=== PATIENT | female | born 1960 | race Caucasian/White ===

== ENCOUNTER 2017-09-12 02:11 | Inpatient (IN) | payer BC ==
--- NOTE | 2017-09-09 04:03 | HISTORY AND PHYSICAL ---
DATE OF ADMISSION: September 12, 2017 IDENTIFICATION/CHIEF COMPLAINT Nickie is a 57-year-old woman with the chief complaint of left hip pain. HISTORY OF PRESENT ILLNESS The patient has a longstanding history of left hip arthritis, progressively painful and debilitating, refractory to conservative care. Surgery is indicated to relieve symptoms after failure of nonoperative measures. PAST MEDICAL HISTORY 1. History of pneumothorax. 2. Pulmonary blebs. 3. Hypertension, controlled on medication. 4. Sleep apnea. 5. Acid reflux disease. PAST SURGICAL HISTORY 1. Notable for contralateral hip replacement. 2. Knee surgery. ALLERGIES PENICILLIN, causes a rash. CURRENT MEDICATIONS 1. Multiple supplements. 2. Crestor 20 mg per day. 3. Citalopram 20 mg a day. 4. Lisinopril 20 mg a day. 5. Hydrochlorothiazide 25 mg a day. FAMILY HISTORY Notable with a father with [employer] and diabetes. Mother with cancer, diabetes, COPD. SOCIAL HISTORY Negative for tobacco use. She quit 20 years ago. She drinks alcohol socially, denies abuse. REVIEW OF SYSTEMS Negative. PHYSICAL EXAMINATION GENERAL: This is a well-developed, well-nourished female who appears stated age. She is normocephalic, atraumatic. NECK: Supple. LUNGS: Clear. HEART: Regular. ABDOMEN: Soft. ORTHOPEDIC EXAM: The left hip is irritable at end range of motion. She is stiff. Hip girdle strength is grossly intact. Calves nontender. Neurovascular function is intact. IMAGING Radiographs demonstrate end-stage hip arthritis. ASSESSMENT Left hip end-stage DJD, progressively painful and debilitating, and refractory to conservative care. PLAN Per patient request, we will proceed with total hip arthroplasty. The nature of the procedure, risks, benefits and the anticipated rehab course were reviewed. Risks include, but are not limited to , major medical or anesthetic complication, infection or neurovascular injury, blood transfusion, leg length discrepancy, instability, need for additional surgery, implant loosening, irrigation or failure or other unforeseen. She understands and wishes to proceed. A signed permit was placed on the chart. No guarantees given or applied. [facility]
[2017-09-11 15:58] LABS: INR 0.94
[~2017-09-12] VITALS: Ht 154.9 cm; Wt 90.7 kg
[2017-09-12] VITALS (16 sets, daily range): BP systolic 99–136; BP diastolic 58–86
[~2017-09-12 02:11] MED LIST: ACET650T40 PO; ALPR-1 PO; ASPI81TA94 PO; BENZ1LOZ MM; BISA-236 RC; CHOL10005 PO; CITA-156 PO; CITA-157 PO; CYAN250013 PO; ERTA1VIA2 IV; FOCUS FACTOR PO; FOSI20TA57 PO; HYDR-2966 PO; HYDR-3503 PO; MILK140C3 PO; MOM PO; OMEG100032 PO; OMEP-125 PO; RESV50CA PO; RIFA300C50 PO; RIV10 PO; ROSU20TA23 PO; TRAM-420 PO; TURM1POW3 MC; TURM538C PO; VITA1CAP46 PO; [UNRECOGNIZED DRUG - CODE] IV; [UNRECOGNIZED DRUG - CODE] PO
[2017-09-12] MEDS ORDERED: PROPOFOL EMUL(*) 10MG/ML 20 ML 40 ML ONE ×2 (09:51→12:09)
[2017-09-12] MEDS ORDERED: LIDOCAINE MPF 1% 5 ML VIAL ONE (09:53)
[2017-09-12] MEDS ORDERED: VANCOMYCIN 1 GM ADDVIAL 1 GM in NS(*) 0.9% 250 ML ADDVAN BAG 250 ML IVPB ONE (10:20)
[2017-09-12] MEDS ORDERED: VANCOMYCIN 1 GM ADDVIAL ONE (10:29)
[2017-09-12] MEDS ORDERED: TRANEXAMIC AC 1000 MG/10ML SDV 1,000 MG in DEXTROSE 5% 50 ML BAG 50 ML IV ONE (10:45)
[2017-09-12] MEDS ORDERED: CLINDAMYCIN(*) 900 MG/NS 50 ML 50 ML IVPB ONE (10:45)
[2017-09-12] MEDS ORDERED: MIDAZOLAM 2 MG/2 ML VIAL IVP PRN (10:45)
[2017-09-12] MEDS ORDERED: NORMOSOL R SOLN(*) 1000 ML BAG 1,000 ML IV PRN ×2 (10:45→13:50)
[2017-09-12] MEDS ORDERED: LIDOCAINE/SOD BICARB 8.4% SYR ID ONE (10:45)
[2017-09-12] MEDS ORDERED: FAMOTIDINE 20 MG TAB PO ONE (10:45)
[2017-09-12] MEDS ORDERED: cloNIDine EPIDUR INJ 100MCG/ML 40 MCG, ROPIVACAINE 0.5% 20 ML VIAL 25 ML, EPINEPHrine H... INJ ONE (10:45)
[2017-09-12] MEDS ORDERED: VANCOMYCIN 1 GM VIAL ONE (11:50)
[2017-09-12] MEDS ORDERED: PHENYLEPHRINE/NS/PF 0.4MG/10ML ONE (12:09)
[2017-09-12] MEDS ORDERED: fentaNYL CITR 100 MCG/2 ML AMP ONE (13:23)
[2017-09-12] MEDS ORDERED: BISACODYL 10 MG SUPP PR PRN (13:50)
[2017-09-12] MEDS ORDERED: diphenhydrAMINE 25 MG CAP PO PRN (13:50)
[2017-09-12] MEDS ORDERED: diphenhydrAMINE 50 MG/ML VIAL IVP PRN (13:50)
[2017-09-12] MEDS ORDERED: FLUSH 10 ML SYR IVP PRN (13:50)
[2017-09-12] MEDS ORDERED: ZOLPIDEM TARTRATE 5 MG TAB PO PRN (13:50)
[2017-09-12] MEDS ORDERED: ACETAMINOPHEN 325 MG TAB PO PRN (13:50)
[2017-09-12] MEDS ORDERED: MAGNESIUM HYDROXIDE* 30ML UDCP PO PRN (13:50)
[2017-09-12] MEDS ORDERED: BENZOCAINE/MENTHOL 1 EACH LOZG PO PRN (13:50)
[2017-09-12] MEDS ORDERED: PROMETHAZINE 25 MG/ML 1 ML AMP IVP PRN (13:50)
--- NOTE | 2017-09-12 15:16 | RADIOLOGY IMAGING REPORT ---
FACILITY: [facility] - [place] PATIENT NAME: Nickie Iniguez : 1960 MR: [id number] V: [id number] EXAM DATE: ORDERING PHYSICIAN: KARTIK BREAUX TECHNOLOGIST: Location: [facility] - [place] Patient: Nickie Iniguez : 1960 Visit/Account:[id number] Date of Sevice: 09/12/2017 Exam type: PELVIS History: POST OP PLACEMENT Comparison: September 17, 2013. Findings: There has been placement of a left total hip arthroplasty that appears in good anatomic alignment on this AP view. Soft tissue gas and skin ernie project adjacent to this postoperative hip. Right hi p arthroplasty appears similar to the prior examination IMPRESSION: 1. As above Report Dictated By: Linette Wade MD at 09/12/2017 3:10 PM Report E-Signed By: Linette Wade MD at 09/12/2017 3:11 PM WSN:[email or web address]
[2017-09-12] MEDS: APAP/HYDROCODONE 325/7.5 TAB PO PRN ×3 (15:32→23:34)
[2017-09-12] MEDS: CELECOXIB 200 MG CAP PO SCH (15:32)
[2017-09-12] MEDS: DIAZEPAM 5 MG TAB PO PRN (18:01)
[2017-09-12] MEDS: CLINDAMYCIN(*) 900 MG/NS 50 ML 50 ML IVPB SCH (19:31)
[2017-09-12] MEDS: MORPHINE 2 MG/ML SYR IVP PRN (21:21)
--- NOTE | 2017-09-12 22:58 | Hospitalist Progress Note ---
Subjective Progress Notes Subjective No cp/sob. 100cc of EBL. 1650cc of crystalloid, and TXA given intra-op. Physical Exam Vital Signs Date Time Temp Pulse Resp B/P (MAP) Pulse Ox O2 Delivery O2 Flow Rate FiO2 09/12/17 19:35 95 Room Air 09/12/17 19:30 71 20 108/58 (75) 09/12/17 18:26 98.8 09/12/17 14:44 2.0 Intake and Output 09/13/17 07:00 Intake Total 2420 ml Output Total 50 ml Balance 2370 ml Intake Oral 420 ml IV Total 2000 ml Output Estimated Blood Loss 50 ml # Voids 2 # Bowel Movements 1 General Appearance: Alert, Awake, No Acute Distress Cardiovascular: Regular Rate and Rhythm Respiratory: Clear to Auscultation Extremities: No Edema Assessment and Plan Problems: (1) Status post hip replacement Status: Acute Assessment & Plan: No CV/pulmonary issues. The patient denies any h/o DVT/PE. The patient to be on ASA 325mg a day for blood clot prevention for 30 days after surgery. (2) Vtcs-Zzrc-Ubxw syndrome Status: Chronic Assessment & Plan: She had a spontaneous pneumothorax in June. No problems since then. (3) HTN (hypertension) Status: Chronic Assessment & Plan: Continue fosinopril and HCTZ with parameters. (4) CARLY (obstructive sleep apnea) Status: Chronic Assessment & Plan: Continue chronic CPAP. (5) Hyperlipemia Status: Chronic Assessment & Plan: She takes Crestor 2-3x/wk. She wants to hold it for now. Exam Sepsis Risk: No Definite Risk Problem Qualifiers (1) Status post hip replacement: Laterality: left Qualified Codes: Z96.642 - Presence of left artificial hip joint CARMEN LAKHANI MD Sep 12, 2017 22:57
[2017-09-13] MEDS: MORPHINE 2 MG/ML SYR IVP PRN ×2 (00:13→20:12)
[2017-09-13] MEDS: DIAZEPAM 5 MG TAB PO PRN ×3 (03:56→17:44)
[2017-09-13] MEDS: CLINDAMYCIN(*) 900 MG/NS 50 ML 50 ML IVPB SCH ×2 (03:56→11:41)
[2017-09-13] MEDS: APAP/HYDROCODONE 325/7.5 TAB PO PRN ×4 (03:56→23:27)
[2017-09-13 03:58] VITALS: BP 113/72
--- NOTE | 2017-09-13 04:10 | LEVENE THA ---
EVENT DATE: September 12, 2017 SURGEON: Pola Stephens MD ANESTHESIOLOGIST: Luis Villela MD ANESTHESIA: General sedation with spinal FAMILY HEALTH NURSE PRACTITIONER: TENISHA Moore PREOPERATIVE DIAGNOSIS Left hip degenerative joint disease. POSTOPERATIVE DIAGNOSIS Left hip degenerative joint disease. PROCEDURE PERFORMED Left total hip arthroplasty. ESTIMATED BLOOD LOSS 300 mL. DRAINS None. SPECIMENS None. COMPLICATIONS No apparent. IMPLANTS Townsend Secur-Fit Max 127, size 10 stem, a Trident PSL العراقي cluster acetabular shell, 48, a Trident X3 0 degree poly liner, 36 mm head accommodating and a Biolox Delta ceramic C taper femoral head, 36 mm -5 neck length. INDICATIONS The patient has end-stage hip arthritis that is painful and debilitating and refractory to conservative care. S he has done well after a prior contralateral hip arthroplasty. Surgery is indicated to relieve pain and improve function after failure of non-operative measures. DESCRIPTION OF PROCEDURE The patient was taken to the operating room and placed supine on the operating table. Spinal block was administered by the anesthesiologist. Due to issue with pulmonary blebs, propofol and sedation were administered by the anesthesiologist and monitored rather than general anesthetic. The patient was positioned in the right lateral decubitus position on a well-padded peg board. All bony prominences and superficial nerves were well padded. Left hip girdle and lower extremity were prepped and draped in the usual sterile fashion for total hip arthroplasty. A standard posterolateral approach was made. Dissection was carried through skin and deep subcu layer down to the deep fascia. This was incised over the tip of the trochanter, extended distally in line with the femur, proximally in line with the sukh fibers. Sukh fibers were split bluntly. Trochanteric bursa was excised. The interval between the abductor and external rotator was identified. Abductor mechanism was protected with a blunt Hohmann. An L capsulotomy was made, starting just above the superior aspect of the pyriformis, and the capsule and external rotators were taken off as a brick layer the back of the femur. This was tagged with #2 Vicryl for later anatomic reattachment. Femoral head was dislocated. End-stage arthritic change is noted. A 1.5 cm neck cut was made, consistent with the preoperative templating. The femoral head was extracted. Femur was translocated anteriorly, and periacetabular retractors were placed with the tips down on bone to avoid injury to critical neurovascular structures. Labrum and pulvinar were excised. A 44 mm reamer was used to medialize to the true medial wall of the acetabulum. This was expanded up to 48, where good rim contact was obtained. Trial 48 has good rder-kj-prky fit. The throat of the acetabulum was opened with a 49. Surfaces were copiously lavaged. The actual shell was impacted, and approximately 45 degrees of lateral opening and 15-20 degrees of anteversion using the transverse acetabular ligament, internal bony landmarks and extracorporeal guide to guide socket placement. Rock solid fixation was achieved. No adjuvant fixation was felt to be needed. Liner was lavaged and dried, and the shell was filled with the acetabular liner. This locked in nicely. Attention turned to femoral preparation. Superior neck was resected with a cookie-cutter. A Gerry awl finds the canal. Tapered reaming was performed up to size 10, where good endosteal contact was obtained. Broaching starts at 8 and works up to 10, following the chemehuevi version of the calcar at about 12-15 degrees. The 10 broach is a bit proud but satisfactory within one row of teeth, and has nice fit and fill. Trial reductions were performed off this. Good sikh of limb length and stability is achievable. Broach was removed. Surfaces were copiously lavaged. The actual stem was impacted into position, seated at same height. The -5 was optimal for sikh of soft tissue tension and stability and limb length. The Parker taper was lavaged and dried, and the actual head was impacted onto the Parker taper. Joint was reduced. The wound was copiously lavaged, meticulous hemostasis was ensured. The external rotators and capsule were repaired through drill holes in the back of the trochanter. Deep fascia was closed distally with #2 Ethibond, proximally with #2 Vicryl. Subcu was lavaged, hemostasis ensured. Dermis was closed with 3-0 Vicryl and skin with surgical ernie. Xeroform was applied followed by a sterile dressing, compression wrap. The patient was awakened from anesthesia and taken to recovery room in stable condition, having tolerated the procedure well. The plan is for a standard HUSSAIN rehab protocol. [facility]
[2017-09-13 07:15] VITALS: BP 103/62
--- NOTE | 2017-09-13 07:44 | Hospitalist Progress Note ---
Subjective Progress Notes Subjective Doing well post op. Pain well controlled. Up to BR without issue. Physical Exam Vital Signs Date Time Temp Pulse Resp B/P (MAP) Pulse Ox O2 Delivery O2 Flow Rate FiO2 09/13/17 07:21 96 Room Air 09/13/17 07:15 98.7 62 16 103/62 (76) 09/13/17 04:45 2.0 Intake and Output 09/14/17 07:00 Intake Total 740 ml Balance 740 ml Intake Oral 740 ml General Appearance: Alert, Awake, No Acute Distress Cardiovascular: Regular Rate and Rhythm Respiratory: Clear to Auscultation Integumentary: Other (No evidence for TP.) Psych: Alert & Oriented X3, Appropriate Mood & Affect Assessment and Plan Problems: (1) Status post hip replacement Status: Acute Assessment & Plan: No CV/pulmonary issues. The patient denies any h/o DVT/PE. The patient to be on ASA 325mg a day for blood clot prevention for 30 days after surgery. (2) Ktpw-Anzd-Kpwd syndrome Status: Chronic Assessment & Plan: She had a spontaneous pneumothorax in June. No problems since then. (3) HTN (hypertension) Status: Chronic Assessment & Plan: Continue fosinopril and HCTZ with parameters. BP stable on the low end of the scale. (4) CARLY (obstructive sleep apnea) Status: Chronic Assessment & Plan: Continue chronic CPAP. (5) Hyperlipemia Status: Chronic Assessment & Plan: She takes Crestor 2-3x/wk. She wants to hold it for now. Time Spent on Plan of Care: < 30 min Exam Sepsis Risk: No Definite Risk Problem Qualifiers (1) Status post hip replacement: Laterality: left Qualified Codes: Z96.642 - Presence of left artificial hip joint SHE LONDONO MD FACP Sep 13, 2017 07:44
[2017-09-13] MEDS: HYDROCHLOROTHIAZIDE 25 MG TAB PO SCH (08:46)
[2017-09-13] MEDS: PANTOPRAZOLE SOD 40 MG TABEC PO SCH (08:46)
[2017-09-13] MEDS: CELECOXIB 200 MG CAP PO SCH ×2 (08:46→16:34)
[2017-09-13] MEDS: ASPIRIN 325 MG TAB PO SCH (08:46)
[2017-09-13] MEDS: FOSINOPRIL SODIUM 10 MG TAB PO SCH (08:46)
[2017-09-13] MEDS: CITALOPRAM HYDROBROM 20 MG TAB PO SCH (08:46)
[2017-09-13 11:15] VITALS: BP 105/64
[2017-09-13 15:17] VITALS: BP 113/66
[2017-09-13 16:52] VITALS: Ht 154.9 cm; Wt 90.7 kg
[2017-09-13 19:21] VITALS: BP 116/75
[2017-09-13 23:25] VITALS: BP 113/68
[2017-09-14 06:20] VITALS: BP 125/73
[2017-09-14] MEDS: APAP/HYDROCODONE 325/7.5 TAB PO PRN ×2 (06:21→10:05)
--- NOTE | 2017-09-14 07:24 | Hospitalist Progress Note ---
Subjective Progress Notes Subjective Doing very well with rehab. She feels comfortable going home this morning and follow-up with Dr. Stephens. Physical Exam Vital Signs Date Time Temp Pulse Resp B/P (MAP) Pulse Ox O2 Delivery O2 Flow Rate FiO2 09/14/17 07:04 92 Room Air 09/14/17 06:20 98.7 73 16 125/73 (90) 09/13/17 04:45 2.0 General Appearance: Alert, Awake, No Acute Distress, Afebrile Cardiovascular: Regular Rate and Rhythm Respiratory: Clear to Auscultation Integumentary: Other (No evidence for VTE.) Psych: Alert & Oriented X3, Appropriate Mood & Affect Assessment and Plan Problems: (1) Status post hip replacement Status: Acute Assessment & Plan: The patient to be on ASA 325mg a day for blood clot prevention for 30 days after surgery. Home today with follow-up on 09/[address] Stephens. (2) Rkvu-Idrc-Csvm syndrome Status: Chronic Assessment & Plan: She had a spontaneous pneumothorax in June. No problems since then. (3) HTN (hypertension) Status: Chronic Assessment & Plan: Continue fosinopril and HCTZ with parameters. BP stable on the low end of the scale. (4) CARLY (obstructive sleep apnea) Status: Chronic Assessment & Plan: Continue chronic CPAP. (5) Hyperlipemia Status: Chronic Assessment & Plan: She takes Crestor 2-3x/wk. She wants to hold it for now. Time Spent on Plan of Care: < 30 min Exam Sepsis Risk: No Definite Risk Problem Qualifiers (1) Status post hip replacement: Laterality: left Qualified Codes: Z96.642 - Presence of left artificial hip joint SHE LONDONO MD FACP Sep 14, 2017 07:24
[2017-09-14] MEDS ORDERED: ASPI-757 PO (07:28)
[2017-09-14] MEDS: ASPIRIN 325 MG TAB PO SCH (08:18)
[2017-09-14] MEDS: CITALOPRAM HYDROBROM 20 MG TAB PO SCH (08:19)
[2017-09-14] MEDS: HYDROCHLOROTHIAZIDE 25 MG TAB PO SCH (08:19)
[2017-09-14] MEDS: FOSINOPRIL SODIUM 10 MG TAB PO SCH (08:19)
[2017-09-14] MEDS: PANTOPRAZOLE SOD 40 MG TABEC PO SCH (08:19)
[2017-09-14] MEDS: CELECOXIB 200 MG CAP PO SCH (08:19)
[2017-09-14] MEDS ORDERED: HYDR-4308 PO (08:39)
[2017-09-14] MEDS ORDERED: CELE-1 PO (08:39)
[2017-09-14] MEDS: DIAZEPAM 5 MG TAB PO PRN (10:05)
== END 2017-09-14 10:10 | disposition home or self-care (01) | DRG 470 ==
LOC: OR 02:11 → MED 14:40
PROVIDERS: ADMIT Orthopaedic Surgery; ATTEND Orthopaedic Surgery
PROC: 5A09357 Assistance with Respiratory Ventilation, Less than 24 Consecutive Hours, Continuous Positive Airway Pressure (ICD-10-PCS; 2017-09-12)
PROC: 0SRB04Z Replacement of Left Hip Joint with Ceramic on Polyethylene Synthetic Substitute, Open Approach (ICD-10-PCS; principal; 2017-09-12 11:01)
DX: M16.12 Unilateral primary osteoarthritis, left hip (principal); Q87.89 Other specified congenital malformation syndromes, not elsewhere classified; I10 Essential (primary) hypertension; G47.30 Sleep apnea, unspecified; K21.9 Gastro-esophageal reflux disease without esophagitis; E78.5 Hyperlipidemia, unspecified; E66.9 Obesity, unspecified; G47.33 Obstructive sleep apnea (adult) (pediatric); Z96.641 Presence of right artificial hip joint; Z87.891 Personal history of nicotine dependence; Z68.37 Body mass index [BMI] 37.0-37.9, adult; Z90.49 Acquired absence of other specified parts of digestive tract; Z90.710 Acquired absence of both cervix and uterus; Z99.81 Dependence on supplemental oxygen
CPT/HCPCS: 36415; 72170; 85610; 86850; 86900; 86901; 97161; 97165; C1776; J0171; J0735; J1885; J2001; J2250; J2270; J2370; J2704; J2795; J3010; J3370; J3490; J7050; J7060

== ENCOUNTER 2017-09-29 11:53 | Inpatient (IN) | payer BC ==
[2017-09-29] VITALS (8 sets, daily range): BP systolic 100–144; BP diastolic 61–88
[~2017-09-29] VITALS: Ht 154.9 cm; Wt 92.5 kg
[~2017-09-29 11:53] MED LIST changes: +ASPI-757 PO; +CELE-1 PO; +HYDR-4308 PO
[2017-09-29] MEDS: LR(*) 1000 ML BAG 1,000 ML IV PRN ×2 (14:47→15:21)
[2017-09-29] MEDS: MORPHINE 2 MG/ML SYR IVP PRN ×2 (14:47→16:10)
[2017-09-29] MEDS ORDERED: CYCL10TA29 PO (14:55)
[2017-09-29] MEDS ORDERED: NORMOSOL R SOLN(*) 1000 ML BAG 1,000 ML IV ONE ×2 (15:00→20:23)
--- NOTE | 2017-09-29 15:05 | Hospitalist Progress Note ---
Subjective Progress Notes Subjective 57yo female known to our service from her recent hospitalization for her left hip replacement earlier this month. She states she was doing very well since returning home, but tripped on an uneven garage floor and fell. She apparently sustained fracture of her surgical hip and repair is planned. She states she has done well since returning home. She denies any fevers/chill/, dyspnea, chest pain. She has been eating and drinking well. She has been taking her medications regularly, including her aspirin. Physical Exam Vital Signs Date Time Temp Pulse Resp B/P (MAP) Pulse Ox O2 Delivery O2 Flow Rate FiO2 09/29/17 14:18 87.5 86 12 144/88 (106) 94 Room Air General Appearance: Alert, Awake Cardiovascular: Regular Rate and Rhythm Respiratory: Clear to Auscultation GI: Soft and Non-Tender Extremities: Warm, Perfused Psych: Alert & Oriented X3 Assessment and Plan Problems: (1) HTN (hypertension) Status: Chronic Assessment & Plan: She has been managed with fosinopril and HCTZ. Will hold her medications josé antonio-operatively and monitor her BPs. Will resume her medications as needed. Check labs pre-op. (2) CARLY (obstructive sleep apnea) Status: Chronic Assessment & Plan: Continue CPAP. (3) Hyperlipemia Status: Chronic Assessment & Plan: Will resume her rosuvastatin post-op. (4) Cibj-Wvuu-Yhgf syndrome Status: Chronic Assessment & Plan: She had a PNTX this past fall. She appears to be asymptomatic at this point. (5) Hip fracture Status: Acute Assessment & Plan: As per Dr. Stephens. No apparent contraindications to surgery. ANURAG COOPER MD Sep 29, 2017 15:05
[2017-09-29] MEDS ORDERED: ROSUVASTATIN CALCIUM 10 MG TAB PO SCH (15:10)
[2017-09-29 15:15] LABS: PLATELET COUNT, AUTOMATED 454 K/uL (150-450)
[2017-09-29 15:34] LABS: INR 0.97
[2017-09-29] MEDS ORDERED: fentaNYL CITR 100 MCG/2 ML AMP ONE (16:01)
--- NOTE | 2017-09-29 16:02 | RADIOLOGY IMAGING REPORT ---
FACILITY: [facility] - [place] PATIENT NAME: Nickie Iniguez : 1960 MR: [id number] V: [id number] EXAM DATE: ORDERING PHYSICIAN: KARTIK BREAUX TECHNOLOG[place]: [place] [facility] [place] : 1960 Visit/Account:[id number] Date of Sevice: 09/29/2017 FEMUR LEFT W/O CONTRAST HISTORY: Fall. Recent hip replacement. ADDITIONAL HISTORY: None. TECHNIQUE: CT left femur without intravenous contrast. 2-D coronal and sagittal reformatted images were obtained from the initial data. One of the following dose optimization techniques was utilized i n the performance of this exam: automated exposure control; adjustment of the mA and/or kv according to patient size; or use of iterative reconstruction technique. Specific details can be referenced in the facility's radiology CT exam operational policy. CONTRAST: None. COMPARISON: None. FINDINGS: Left femur: Recent left HUSSAIN. There is a oblique fracture extending through the anterior cortex of th e femur extending to the intramedullary aura. Fracture extends to the medial cortex 5 cm inferior to the lesser trochanter. Left HUSSAIN is still well aligned. No discrete acetabular fracture. Mild to mo derate cystic change within the anterior acetabulum. Pubic rami are intact. Knee: Postoperative changes likely from prior ACL reconstruction with mild to moderate tricompartment al degenerative changes. IMPRESSION: 1. Recent left HUSSAIN with oblique fracture extending through the anterior cortex of the proximal femur extending to the intramedullary aura. Fracture extends to the medial cortex 5 cm inferior to the les ser trochanter Report Dictated By: Matt Duggan MD at 09/29/2017 3:51 PM Report E-Signed By: Matt Duggan MD at 09/29/2017 3:58 PM WSN:[email or web address]
[2017-09-29] MEDS ORDERED: LIDOCAINE MPF 1% 5 ML VIAL ONE (16:08)
[2017-09-29] MEDS ORDERED: ONDANSETRON 4 MG/2 ML VIAL ONE (16:08)
[2017-09-29] MEDS ORDERED: PROPOFOL EMUL(*) 10MG/ML 20 ML 40 ML ONE (16:08)
[2017-09-29] MEDS ORDERED: TRANEXAMIC AC 1000 MG/10ML SDV 1,000 MG in DEXTROSE 5% 50 ML BAG 50 ML IVPB ONE ×3 (16:10→17:30)
[2017-09-29] MEDS ORDERED: cloNIDine EPIDUR INJ 100MCG/ML 40 MCG, ROPIVACAINE 0.5% 20 ML VIAL 25 ML, EPINEPHrine H... INJ ONE (16:25)
[2017-09-29] MEDS ORDERED: VANCOMYCIN 1 GM ADDVIAL 1 GM in NS(*) 0.9% 250 ML ADDVAN BAG 250 ML IVPB ONE (16:45)
[2017-09-29] MEDS ORDERED: KETOROLAC 15 MG/ML VIAL IVP ONE (16:50)
[2017-09-29] MEDS ORDERED: CLINDAMYCIN IVPB ONE (17:15)
[2017-09-29] MEDS ORDERED: FAMOTIDINE(*) 20MG/50ML PREMIX 50 ML IVPB ONE (17:15)
[2017-09-29] MEDS ORDERED: NS 0.9% IVPB ONE (17:15)
--- NOTE | 2017-09-29 17:45 | HISTORY AND PHYSICAL ---
DATE OF ADMISSION: September 29, 2017 IDENTIFICATION/CHIEF COMPLAINT Nickie is 17 days out from left hip replacement. She fell yesterday and has severe left hip pain. HISTORY OF PRESENT ILLNESS Patient had been doing well after hip arthroplasty until she stumbled and fell. She has been unable to bear weight and has debilitating groin pain radiating into the thigh. PAST MEDICAL/SURGICAL, FAMILY HISTORY, SOCIAL HISTORY AND REVIEW OF SYSTEMS Otherwise unchanged. ALLERGIES Unchanged. CURRENT MEDICATIONS Unchanged. PHYSICAL EXAMINATION GENERAL: This is a healthy female. HEENT: She is normocephalic, atraumatic. NECK: Supple. LUNGS: Clear. ABDOMEN: Soft. ORTHOPEDIC EXAM: The wound has healed. No signs of infection. Minimal swelling. Calves nontender. Neurovascular function is intact. She is shortened roughly 3 cm compared to the contralateral leg by gross clinical measurement. She resists any range of motion and is unable to straight leg raise secondary to pain. DIAGNOSTIC DATA Radiographs demonstrate subsidence of the femoral component about 4 cm. There is no definitive fracture line. There is no dislocation. There is notable interval change in the position of the femoral component from the immediate postop film. ASSESSMENT Left femoral component subsidence related to proximal femur fracture. PLAN We are going to obtain a metal suppressed CT to better understand the fracture anatomy. Unfortunately this requires revision surgery and this will most likely consist of revision arthroplasty and/or proximal femoral fracture, ORIF with possible bone grafting. The nature of the procedure, risks, benefits, the anticipated rehabilitative course were reviewed. The risks include, but are not limited to , major medical or anesthetic complications, infection, neurovascular injury, blood transfusion, stiffness, scarring, nonunion, malunion , instability, leg length discrepancy, implant loosening, migration or failure, persistent or recurrent pain or symptoms, need for additional surgery and other unforeseen. She understands. A signed consent was placed in the chart. No guarantees are given or implied. [facility]
[2017-09-29] MEDS ORDERED: NORMOSOL R SOLN(*) 1000 ML BAG 1,000 ML IV PRN (20:35)
[2017-09-29] MEDS ORDERED: BISACODYL 10 MG SUPP PR PRN (20:35)
[2017-09-29] MEDS ORDERED: ACETAMINOPHEN 325 MG TAB PO PRN (20:35)
[2017-09-29] MEDS ORDERED: BENZOCAINE/MENTHOL 1 EACH LOZG PO PRN (20:35)
[2017-09-29] MEDS ORDERED: ZOLPIDEM TARTRATE 5 MG TAB PO PRN (20:35)
[2017-09-29] MEDS ORDERED: FLUSH 10 ML SYR IVP PRN (20:35)
[2017-09-29] MEDS ORDERED: PROMETHAZINE 25 MG/ML 1 ML AMP IVP PRN (20:35)
[2017-09-29] MEDS ORDERED: diphenhydrAMINE 50 MG/ML VIAL IVP PRN (20:35)
--- NOTE | 2017-09-29 21:00 | RADIOLOGY IMAGING REPORT ---
FACILITY: [facility] PATIENT NAME: Nickie Iniguez : 1960 MR: [id number] V: [id number] EXAM DATE: ORDERING PHYSICIAN: EDUAR GUILLEN TECHNOLOGIST: Location: [facility] Patient: Nickie Iniguez : 1960 Visit/Account:[id number] Date of Sevice: 09/29/2017 CHEST SINGLE AP Indication: Chest pain. History of pneumothorax.. Comparison: 09/17/2013. Findings: Cardiomediastinal silhouette and pulmonary vessels within normal limits. There is no focal infiltrate or lobar consolidation. No pneumothorax or pleural effusion. No nodule. Upper abdomen is unremarkable. No acute bony abnormality. IMPRESSION: 1. No acute cardiopulmonary process. Report Dictated By: Roly Brandon at 09/29/2017 8:54 PM Report E-Signed By: Roly Brandon at 09/29/2017 8:56 PM WSN:[id number]
--- NOTE | 2017-09-29 21:01 | RADIOLOGY IMAGING REPORT ---
FACILITY: [facility] - [place] PATIENT NAME: Nickie Iniguez : 1960 MR: [id number] V: [id number] EXAM DATE: ORDERING PHYSICIAN: KARTIK BREAUX TECHNOLOGIST: Location: [facility] [place] Patient: Nickie Iniguez : 1960 Visit/Account:[id number] Date of Sevice: 09/29/2017 PELVIS INDICATION: Hip pain history arthroplasty. COMPARISON: 09/12/2017. FINDINGS: Below image of the pelvis. Bilateral hip arthroplasties are present. There are banding wi res around the proximal left femur which is new from the previous exam. No periprosthetic lucencies. No acute fracture or dislocation. No bony lesions. Soft tissues are unremarkable . No radiopaque fore ign body otherwise. IMPRESSION: No acute abnormality. Report Dictated By: Roly Brandon at 09/29/2017 8:56 PM Report E-Signed By: Roly Brandon at 09/29/2017 8:58 PM WSN:[id number]
[2017-09-29] MEDS: DIAZEPAM 5 MG TAB PO PRN (21:35)
[2017-09-29] MEDS: APAP/HYDROCODONE 325/7.5 TAB PO PRN (21:35)
--- NOTE | 2017-09-29 21:50 | OPERATIVE REPORT 1 ---
EVENT DATE: September 29, 2017 SURGEON: Pola Stephens MD ANESTHESIOLOGIST: Julius Ling MD ANESTHESIA: Spinal block plus light general. DIRECTOR PAYER: Ryan Vides PA-C PREOPERATIVE DIAGNOSIS Left proximal femoral intertrochanteric fracture status post total hip arthroplasty with unstable femoral component. POSTOPERATIVE DIAGNOSIS Left proximal femoral intertrochanteric fracture status post total hip arthroplasty with unstable femoral component. PROCEDURES PERFORMED 1. Open reduction, internal fixation of intertrochanteric fracture. 2. Revision of left total hip arthroplasty femoral component only. ESTIMATED BLOOD LOSS 200 mL DRAINS None. SPECIMENS None. COMPLICATIONS None apparent. IMPLANTS USED 3[employer]der [employer] modular system with a 155 stem length, 19 distal diameter, a 21 mm standard height V40 taper proximal conical body, and a 36 mm, +5 ceramic V40 Biolox Delta femoral head. For fracture fixation, two Dall-Miles cables with crusher setter used, 2 mm in diameter. INDICATIONS Nickie is only 17 days out from hip arthroplasty. She was doing extremely well when she had a very hard fall yesterday. She had severe, debilitating pain. X- rays are done which demonstrate subsidence of components. A followup CT demonstrates a fracture extending along the anteromedial aspect of the calcar and down the below the lesser trochanter. Surgery is indicated to restore stability, relieve pain, and optimize function. DESCRIPTION OF PROCEDURE The patient was taken to the operating room and placed supine on the operating table. A spinal block was administered by the anesthesiologist. Light general anesthesia was induced. Antibiotics and TXA were administered IV. The patient was positioned in the right lateral decubitus on a well-padded pegboard. The pelvis was secured in the vertical position. All bony prominences and superficial nerves were well padded. The left hip girdle and lower extremity were prepped and draped free in the usual sterile fashion for hip arthroplasty. The prior surgical incision was opened and extended distally about 2 inches and proximally an inch. Dissection was carried down through the subcutaneous tissue down to the deep fascia. Prior stitches were identified, and the same fascial split was made. The gluteus nuzhat was split bluntly. Hematoma was evacuated from the wound, and the wound is copiously lavaged. The capsular repair was ruptured. The bone hook was used to reach around the femoral neck and to dislocate the femur to obtain a bit of distal exposure. Some of the gluteus nuzhat tendon insertion was released. The fracture site was identified. The stem, although unstable, was impacted distally from its initial position. The threaded attachment for the slap hammer for the Secur[employer] stem was then inserted into the top of the stem, and with gentle blows in line with the femur, this was extracted without any further damage to the femur. At this point, the wound was copiously lavaged. Fracture hematoma was cleared out. The decision was made to initiate surgery with repair of the fracture with Dall-Miles cables for cerclage. The first was placed distal to the lesser, keeping the insertion device directly on bone to avoid trapping critical neurovascular structures. The tip was brought down beneath the vastus lateralis. One of the cables preloaded with the crimping device was threaded. This was crossed over with attention to the appropriate tension and held with the device while the second cable was applied before crimping. The second cable was placed just above the lesser trochanter using the same insertion device, taking care to stay directly on bone beneath soft tissue. This was crimped down to the ideal tension, and the fracture site closed completely with a combination of these two cables. With this satisfactory reduction, the locking devices on the cables were crimped, and these were cut. The fracture remained anatomically reduced. Next, distal reaming was performed with the conical reamers for the diaphyseal fixation. This was taken down to the top laser etching on the reaming device at the top of the trochanter and then serially reamed in 1 mm increments up to 19 where good end osteal contact was obtained. Reamings from the canal distally were saved for later grafting of the fracture. The actual 19 distal stem was then impacted and seated nicely. It seated a few millimeters distal to the original position. Rock-solid fixation rotationally was obtained. Trial reduction was performed with various bodies off this. The standard body was optimal for church of the limb length and stability, dialed in at about 20 degrees of version. The actual standard proximal conical body was then selected. The Parker taper was cleared and dried distally in the canal, and this was impacted into position taking care to control version at the same angle used during trialing, which is about 25 degrees of anteversion. The increase in anteversion allows better church of the limb length without mechanical impingement, and it was felt to be optimal in this circumstance. The trial reduction was performed with various head lengths, and the +5 was felt to be optimal for church of the limb length and stability. The fracture site was then bone grafted along the conical proximal body with the previously obtained reamings, and then the Parker taper was lavaged and dried, and the Biolox head was impacted into position. The joint was reduced. Stability and limb length were checked again and felt to be optimal. The wound was then lavaged. Any loose debris was cleared out. Vancomycin powder 0.5 g was placed deep in the wound. The capsule could not be repaired, but the deep fascia was repaired distally with #2 Ethibond and proximally with #2 Vicryl. The subcutaneous tissue was lavaged. Hemostasis was assured. The other 0.5 g of vancomycin powder was placed in the subcutaneous layer. The derm was closed with 3-0 Vicryl and the skin with surgical ernie. Xeroform and 4 x 4 were applied for a dry, sterile dressing and a hip wrap. The patient was rolled supine. An abduction pillow was placed. She was awakened from anesthesia and taken to the recovery room in stable condition having tolerated the procedure well. PLAN The plan is for standard [facility] rehab protocol, but we will keep her 50% weightbearing with crutches for the first four to six weeks and avoid any strengthening times six weeks. ADDIS
[2017-09-29] MEDS ORDERED: KCL (*) 20 MEQ/100 ML PREMIX 100 ML IV ONE (22:00)
[2017-09-29] MEDS ORDERED: MORPHINE 2 MG/ML SYR IVP PRN (23:20)
[2017-09-29] MEDS ORDERED: MORPHINE 4 MG/ML SYR ONE (23:24)
[2017-09-29] MEDS ORDERED: MORPHINE(*) 4 MG/ML SDV IVP PRN (23:45)
[2017-09-30] VITALS (14 sets, daily range): BP systolic 82–126; BP diastolic 43–78; Ht 154.9 cm; Wt 92.5 kg
[2017-09-30] MEDS: MORPHINE 10 MG/ML SYR IVP PRN ×3 (00:09→09:27)
[2017-09-30] MEDS: CLINDAMYCIN(*) 900 MG/NS 50 ML 50 ML IVPB SCH ×3 (01:38→17:50)
[2017-09-30] MEDS: APAP/HYDROCODONE 325/7.5 TAB PO PRN ×4 (01:39→19:33)
[2017-09-30] MEDS: DIAZEPAM 5 MG TAB PO PRN ×2 (04:07→23:06)
[2017-09-30] MEDS: MORPHINE 4 MG/ML SYR IVP PRN (04:22)
[2017-09-30 05:51] LABS: PLATELET COUNT, AUTOMATED 414 K/uL (150-450)
[2017-09-30] MEDS: ASPIRIN 325 MG TAB PO SCH (08:11)
[2017-09-30] MEDS: CELECOXIB 200 MG CAP PO SCH ×2 (08:11→16:38)
[2017-09-30] MEDS: PANTOPRAZOLE SOD 40 MG TABEC PO SCH (08:12)
[2017-09-30] MEDS: CITALOPRAM HYDROBROM 20 MG TAB PO SCH (08:12)
[2017-09-30] MEDS ORDERED: HYDROCHLOROTHIAZIDE 25 MG TAB PO SCH (09:00)
[2017-09-30] MEDS ORDERED: FOSINOPRIL SODIUM 10 MG TAB PO SCH (09:00)
--- NOTE | 2017-09-30 09:10 | Hospitalist Progress Note ---
Subjective Progress Notes Subjective The patient denies new complaints. Her pain is better today. She is drinking fluids better today. Physical Exam Vital Signs Date Time Temp Pulse Resp B/P (MAP) Pulse Ox O2 Delivery O2 Flow Rate FiO2 09/30/17 07:26 97.7 78 16 82/53 (63) 99 Nasal Cannula 2.0 General Appearance: Alert, Awake, No Acute Distress, Afebrile Neuro: No Gross deficits Eyes: PERRLA Cardiovascular: Regular Rate and Rhythm Respiratory: Clear to Auscultation (Anteriorly.) Extremities: Warm, Perfused, Other (No edema.) Integumentary: Other (Surgical wound bandaged.) Psych: Alert & Oriented X3, Appropriate Mood & Affect Result Diagram: 09/30/17 0506 09/30/17 0506 Assessment and Plan Problems: (1) HTN (hypertension) Status: Chronic Assessment & Plan: She has been managed with fosinopril and HCTZ. Will hold her medications josé antonio-operatively and monitor her BPs. Will resume her medications as needed. Check labs pre-op. (2) CARLY (obstructive sleep apnea) Status: Chronic Assessment & Plan: Continue CPAP. (3) Hyperlipemia Status: Chronic Assessment & Plan: Will resume her rosuvastatin post-op. (4) Dnfz-Fmfx-Xpqt syndrome Status: Chronic Assessment & Plan: She had a PNTX this past fall. She appears to be asymptomatic at this point. (5) Hip fracture Status: Acute Assessment & Plan: As per Dr. Stephens. No apparent contraindications to surgery. (6) Elevated serum creatinine Status: Acute Assessment & Plan: She had some mild hypotension perioperatively. She is chronically on an MAGALY-I and HCTZ. She may have been a bit dehydrated pre-op. Will hydrate and follow her BMPs. Recheck BMP ordered for 1400. Recheck in am as well. Time Spent on Plan of Care: < 30 min Exam Sepsis Risk: No Definite Risk RYLAN COOPER MD Sep 30, 2017 09:10
[2017-09-30] MEDS: POTASSIUM CHL 10 MEQ TABCR PO SCH ×2 (09:27→16:38)
[2017-09-30] MEDS: DOCUSATE SODIUM 100 MG CAP PO SCH ×2 (10:27→20:15)
[2017-09-30] MEDS: NS(*) 0.9% 1000 ML BAG 1,000 ML IV PRN (14:50)
[2017-09-30] MEDS: diphenhydrAMINE 25 MG CAP PO PRN (20:15)
[2017-10-01] VITALS (18 sets, daily range): BP systolic 99–129; BP diastolic 49–94
[2017-10-01] MEDS: APAP/HYDROCODONE 325/7.5 TAB PO PRN ×5 (00:12→19:46)
[2017-10-01] MEDS: diphenhydrAMINE 25 MG CAP PO PRN (02:25)
[2017-10-01] MEDS: MORPHINE 4 MG/ML SYR IVP PRN ×6 (02:26→23:14)
[2017-10-01] MEDS: NS(*) 0.9% 1000 ML BAG 1,000 ML IV PRN (04:40)
[2017-10-01] MEDS: DIAZEPAM 5 MG TAB PO PRN ×3 (05:07→18:39)
[2017-10-01 06:08] LABS: PLATELET COUNT, AUTOMATED 333 K/uL (150-450)
--- NOTE | 2017-10-01 06:30 | Hospitalist Progress Note ---
Subjective Progress Notes Subjective The patient is having muscle spasm in her thigh. Physical Exam Vital Signs Date Time Temp Pulse Resp B/P (MAP) Pulse Ox O2 Delivery O2 Flow Rate FiO2 10/01/17 05:00 74 112/66 (81) 94 Nasal Cannula 2.0 10/01/17 02:04 98.2 22 General Appearance: Alert, Awake, No Acute Distress, Afebrile Neuro: No Gross deficits Eyes: PERRLA Cardiovascular: Regular Rate and Rhythm Respiratory: Clear to Auscultation GI: Soft and Non-Tender Extremities: Warm, Perfused, Other (No edema.) Integumentary: Other (Surgical wound is bandaged.) Psych: Alert & Oriented X3, Appropriate Mood & Affect Result Diagram: 09/30/17 0506 10/01/17 0513 Assessment and Plan Problems: (1) HTN (hypertension) Status: Chronic Assessment & Plan: She has been managed with fosinopril and HCTZ. Will hold her medications josé antonio-operatively and monitor her BPs. Will resume her medications as needed. Check labs pre-op. (2) CARLY (obstructive sleep apnea) Status: Chronic Assessment & Plan: Continue CPAP. (3) Hyperlipemia Status: Chronic Assessment & Plan: Will resume her rosuvastatin post-op. (4) Mswb-Mumf-Wtoc syndrome Status: Chronic Assessment & Plan: She had a PNTX this past fall. She appears to be asymptomatic at this point. (5) Hip fracture Status: Acute Assessment & Plan: As per Dr. Stephens. No apparent contraindications to surgery. (6) Elevated serum creatinine Status: Acute Assessment & Plan: She had some mild hypotension perioperatively. She is chronically on an MAGALY-I and HCTZ. She may have been a bit dehydrated pre-op. Her creatinine peaked at 2.5 yesterday afternoon and then started decreasing. It was 2.2 at 2000 last evening and is 1.6 this am. Her urine output has increased significantly as well. Time Spent on Plan of Care: < 30 min Exam Sepsis Risk: No Definite Risk RYLAN COOPER MD Oct 01, 2017 06:30
[2017-10-01] MEDS ORDERED: NS(*) 0.9% 1000 ML BAG 1,000 ML IV PRN (06:40)
[2017-10-01] MEDS: ASPIRIN 325 MG TAB PO SCH (08:39)
[2017-10-01] MEDS: CITALOPRAM HYDROBROM 20 MG TAB PO SCH (08:40)
[2017-10-01] MEDS: PANTOPRAZOLE SOD 40 MG TABEC PO SCH (08:40)
[2017-10-01] MEDS: DOCUSATE SODIUM 100 MG CAP PO SCH ×2 (08:40→19:46)
[2017-10-01] MEDS: MAGNESIUM HYDROXIDE* 30ML UDCP PO PRN (17:13)
[2017-10-02] VITALS (8 sets, daily range): BP systolic 106–126; BP diastolic 60–89
[2017-10-02] MEDS: DIAZEPAM 5 MG TAB PO PRN ×2 (00:34→14:27)
[2017-10-02] MEDS: diphenhydrAMINE 25 MG CAP PO PRN ×2 (00:39→08:50)
[2017-10-02] MEDS: APAP/HYDROCODONE 325/7.5 TAB PO PRN ×3 (02:34→18:37)
[2017-10-02] MEDS: MORPHINE 4 MG/ML SYR IVP PRN (02:35)
[2017-10-02] MEDS: MORPHINE 10 MG/ML SYR IVP PRN ×2 (03:36→07:23)
[2017-10-02 05:40] LABS: PLATELET COUNT, AUTOMATED 374 K/uL (150-450)
--- NOTE | 2017-10-02 06:55 | Hospitalist Progress Note ---
Subjective Progress Notes Subjective No cp/sob. However, she is having a lot of popping and pain in the repaired hip. Physical Exam Vital Signs Date Time Temp Pulse Resp B/P (MAP) Pulse Ox O2 Delivery O2 Flow Rate FiO2 10/02/17 04:00 113/78 (90) 96 10/02/17 03:00 99.0 86 20 Nasal Cannula 2.0 General Appearance: Alert, Awake, No Acute Distress Result Diagram: 10/02/1751010/02/17510 Assessment and Plan Problems: (1) Hip fracture Status: Acute Assessment & Plan: No CV/pulmonary issues. ASA 325mg a day for 30 days after surgery for blood clot prevention. (2) HTN (hypertension) Status: Chronic Assessment & Plan: She has been managed with fosinopril and HCTZ. Will hold her medications josé antonio-operatively and monitor her BPs. Will resume her medications as needed. Check labs pre-op. (3) Elevated serum creatinine Status: Resolved Assessment & Plan: She had some mild hypotension perioperatively. She is chronically on an MAGALY-I and HCTZ. She may have been a bit dehydrated pre-op. Her creatinine peaked at 2.5 and then started decreasing. It was 0.9 most recently. Her urine output has increased significantly as well. (4) CARLY (obstructive sleep apnea) Status: Chronic Assessment & Plan: Continue CPAP. (5) Hyperlipemia Status: Chronic Assessment & Plan: Continue rosuvastatin post-op. (6) Aefn-Lodf-Vskr syndrome Status: Chronic Assessment & Plan: She had a PNTX this past fall. She appears to be asymptomatic at this point. Exam Sepsis Risk: No Definite Risk CARMEN LAKHANI MD Oct 02, 2017 06:55
[2017-10-02] MEDS: DOCUSATE SODIUM 100 MG CAP PO SCH ×2 (08:49→20:34)
[2017-10-02] MEDS: METAXALONE 800 MG TAB PO PRN ×2 (08:49→16:58)
[2017-10-02] MEDS: PANTOPRAZOLE SOD 40 MG TABEC PO SCH (08:49)
[2017-10-02] MEDS: ASPIRIN 325 MG TAB PO SCH (08:50)
[2017-10-02] MEDS: CITALOPRAM HYDROBROM 20 MG TAB PO SCH (08:50)
[2017-10-02] MEDS: MAGNESIUM HYDROXIDE* 30ML UDCP PO PRN (20:33)
[2017-10-02] MEDS ORDERED: ROSUVASTATIN CALCIUM 10 MG TAB PO SCH (21:00)
[2017-10-03] MEDS: APAP/HYDROCODONE 325/7.5 TAB PO PRN ×3 (00:15→12:35)
[2017-10-03 00:16] VITALS: BP 127/74
[2017-10-03] MEDS: METAXALONE 800 MG TAB PO PRN (02:46)
[2017-10-03 05:20] VITALS: BP 115/73
[2017-10-03 07:33] VITALS: BP 123/69
[2017-10-03] MEDS ORDERED: ASPI-757 PO (08:26)
--- NOTE | 2017-10-03 09:07 | Hospitalist Progress Note ---
Subjective Progress Notes Subjective No new complaints. Physical Exam Vital Signs Date Time Temp Pulse Resp B/P (MAP) Pulse Ox O2 Delivery O2 Flow Rate FiO2 10/03/17 07:33 98.7 94 20 123/69 (87) 98 Nasal Cannula 2.0 General Appearance: Alert, Awake, No Acute Distress Cardiovascular: Regular Rate and Rhythm Respiratory: Clear to Auscultation Extremities: Warm, Perfused Psych: Appropriate Mood & Affect Result Diagram: 10/02/1751010/02/17510 Assessment and Plan Problems: (1) Hip fracture Status: Acute Assessment & Plan: No CV/pulmonary issues. ASA 325mg a day for 30 days after surgery for blood clot prevention. (2) HTN (hypertension) Status: Chronic Assessment & Plan: She has been managed with fosinopril and HCTZ. Medications were held josé antonio-operatively and monitored her BPs. She has not been hypertensive. Will DC her meds and have her F/U with her primary care after discharge. (3) Elevated serum creatinine Status: Resolved Assessment & Plan: She had some mild hypotension perioperatively. She is chronically on an MAGALY-I and HCTZ. She may have been a bit dehydrated pre-op. Her creatinine peaked at 2.5 and then started decreasing. It has normalized. (4) CARLY (obstructive sleep apnea) Status: Chronic Assessment & Plan: Continue CPAP. (5) Hyperlipemia Status: Chronic Assessment & Plan: Continue rosuvastatin post-op. (6) Frig-Kzef-Xnpj syndrome Status: Chronic Assessment & Plan: She had a PNTX this past fall. She appears to be asymptomatic at this point. Time Spent on Plan of Care: < 30 min Exam Sepsis Risk: No Definite Risk RYLAN COOPER MD Oct 03, 2017 09:07
[2017-10-03] MEDS: ASPIRIN 325 MG TAB PO SCH (09:24)
[2017-10-03] MEDS: PANTOPRAZOLE SOD 40 MG TABEC PO SCH (09:24)
[2017-10-03] MEDS: CITALOPRAM HYDROBROM 20 MG TAB PO SCH (09:24)
[2017-10-03] MEDS: DOCUSATE SODIUM 100 MG CAP PO SCH (09:24)
[2017-10-03] MEDS ORDERED: DIA5 PO (10:50)
[2017-10-03] MEDS ORDERED: MELO-149 PO (10:51)
[2017-10-03] MEDS ORDERED: HYDR-4309 PO (10:52)
[2017-10-03] MEDS ORDERED: HYDR-4308 PO (10:58)
[2017-10-03] MEDS ORDERED: OXYC-823 PO (10:59)
--- NOTE | 2017-10-10 17:48 | DISCHARGE SUMMARY ---
REASON FOR ADMISSION Patient status post hip arthroplasty with fall and fracture proximal femur, periprosthetic injury, admitted for hip revision and fracture fixation. HOSPITAL COURSE Patient was taken to the operating room on the day of admission and undergoes uncomplicated fracture fixation and revision of her femoral component. Postoperatively she was maintained on ABIs and aspirin for DVT prophylaxis. She has 24 hours postop IV antibiotics. She is mobilized by Therapy, weightbearing as tolerated with a walker and makes good progress. At the time of discharge she is cleared by Therapy for safety and mobility. She is comfortable on p.o. pain medication. Voiding and stooling normally. DISPOSITION Discharged home. FOLLOWUP With Dr. Stephens in one week in [facility]. MEDICATIONS 1. Aspirin 325 p.o. q.day times one month. 2. Hydrocodone for pain. DIET Ad tamar. CONDITION ON DISCHARGE Stable. INSTRUCTIONS Posterior hip precautions. Weight bear as tolerated with crutches or walker times six weeks. Wound care per protocol. Okay to shower, no submersion of the wound. MTDD
== END 2017-10-03 12:48 | disposition home or self-care (01) | DRG 467 ==
LOC: INTOOBSV 14:04 → OBSVTOIN 14:04 → MED 14:04
PROVIDERS: ADMIT Orthopaedic Surgery; ATTEND Orthopaedic Surgery
PROC: 0SRS03Z Replacement of Left Hip Joint, Femoral Surface with Ceramic Synthetic Substitute, Open Approach (ICD-10-PCS; 2017-09-29)
PROC: 0SPS0JZ Removal of Synthetic Substitute from Left Hip Joint, Femoral Surface, Open Approach (ICD-10-PCS; 2017-09-29)
PROC: 0QS704Z Reposition Left Upper Femur with Internal Fixation Device, Open Approach (ICD-10-PCS; principal; 2017-09-29 17:39)
DX: S72.142A Displaced intertrochanteric fracture of left femur, initial encounter for closed fracture (principal); T84.021A Dislocation of internal left hip prosthesis, initial encounter; Q87.89 Other specified congenital malformation syndromes, not elsewhere classified; I10 Essential (primary) hypertension; G47.33 Obstructive sleep apnea (adult) (pediatric); E78.5 Hyperlipidemia, unspecified; R79.89 Other specified abnormal findings of blood chemistry; K21.9 Gastro-esophageal reflux disease without esophagitis; I95.1 Orthostatic hypotension; E86.0 Dehydration; E66.9 Obesity, unspecified; W01.0XXA Fall on same level from slipping, tripping and stumbling without subsequent striking against object, initial encounter; Y79.2 Prosthetic and other implants, materials and accessory orthopedic devices associated with adverse incidents; Y92.015 Private garage of single-family (private) house as the place of occurrence of the external cause; Y99.8 Other external cause status; Z90.49 Acquired absence of other specified parts of digestive tract; Z90.710 Acquired absence of both cervix and uterus; Z68.38 Body mass index [BMI] 38.0-38.9, adult
CPT/HCPCS: 36415; 71045; 72170; 82310; 82374; 82435; 82565; 82947; 84132; 84295; 84520; 85025; 85610; 86850; 86900; 86901; 86920; 97161; 97165; C1776; J0171; J0735; J1885; J2001; J2270; J2405; J2704; J2795; J3010; J3370; J3480; J3490; J7030; J7050; J7060; J7120; Q0163